=== PATIENT | male | born 1970 | race Caucasian/White ===

== ENCOUNTER 2019-07-17 16:18 | Emergency (ER) | payer OTHER, SELFPAY ==
[2019-07-17 16:18] VITALS: BP 161/102; PULSE 67; RESP 16; TEMP 36.4; O2SAT 98; BMI 25.8
--- NOTE | 2019-07-17 16:44 | RAD_ITS ---
STUDY: X-RAY - LEFT HAND REASON FOR EXAM: Male, 49 years old. Middle finger pain. TECHNIQUE: 3 view(s) of the hand. COMPARISON: None. FINDINGS: There is an intra-articular fracture at the base of the middle phalanx of the left middle finger. Remainder the visualized osseous structures are intact There are no radiodense foreign bodies. RAD/Hand Min 3 Views IMPRESSION: Intra-articular fracture at the base of the middle phalanx of the left middle finger. Electronically Signed: Sonu Gonzalez, at 17:25 EST Tel , Service support ,
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
== END 2019-07-17 18:16 | disposition home or self-care (01) ==
PROVIDERS: Emergency Provider Emergency Medicine; Family Provider Internal Medicine; PCP Internal Medicine
DX: S62.653A Nondisplaced fracture of middle phalanx of left middle finger, initial encounter for closed fracture (principal); V18.0XXA Pedal cycle driver injured in noncollision transport accident in nontraffic accident, initial encounter; Y93.55 Activity, bike riding; Y92.89 Other specified places as the place of occurrence of the external cause; Y99.8 Other external cause status
CPT/HCPCS: 73130; 99283